=== PATIENT | male | born 1990 | race African-American/Black ===

== ENCOUNTER 2019-03-27 10:18 | Inpatient (IN) | payer OTHER ==
[~2019-03-27] VITALS: Ht 182.9 cm; Wt 124.3 kg
[2019-03-27] MEDS ORDERED: ONDANSETRON 2MG/ML, 2ML ONE (10:28)
[2019-03-27] MEDS ORDERED: ONDANSETRON 2MG/ML, 2ML IVPush ONE (10:30)
[2019-03-27] MEDS ORDERED: SODIUM CHLORIDE 0.9% 1,000ML IVBOLUS ONE (10:30)
[2019-03-27] MEDS ORDERED: SODIUM CHLORIDE FLUSH 10ML SYR IVF ONE (10:30)
--- NOTE | 2019-03-27 10:43 | NUR ---
BIBA FROM HOME. ABD PAIN, N/V/D X 2 DAYS. LAST DIAHRREA YEST. COFFEE GROUND EMESIS (PER PT) X4 TODAY. PAIN TO PALP, SEEMS WORSE IN LUQ. BS NORMAL X4. C/O NAUSEA. 12.5 PHENERGAN/100 FENT/650 CC NS PER EMS W/ LITTLE RELIEF. A&OX4 GCS 15. DROWSY R/T MEDS. LUNGS CTAB. ZACHARY 50S. BP STABLE. ABD SOFT. PULSES 2+. MILAGROS IN ROOM FOR EVAL. SHAW PER MAY. UA SENT. AWAITING LAB. CALL STACY IN REACH.
[2019-03-27 10:48] LABS: MICROSCOPIC AUTO
[2019-03-27 10:59] LABS: CULTURE INDICATED? NO
[2019-03-27 11:06] LABS: BASOPHILS % (AUTO) 0 % (0-1); EOSINOPHILS # (AUTO) 0.01 x10^3/uL (0-0.4); EOSINOPHILS % (AUTO) 0 % (1-7); LYMPHOCYTES # (AUTO) 1.21 x10^3/uL (1-3.4); LYMPHOCYTES % (AUTO) 13 % (22-44); MD NO; MEAN CORPUSCULAR HEMOGLOBIN 30.2 pg (27.5-34.5); MEAN CORPUSCULAR HGB CONC 33.7 g/dL (33.2-36.2); MEAN CORPUSCULAR VOLUME 89.7 fL (81-97); MEAN PLATELET VOLUME 7.8 fL (7.4-10.4); MONOCYTES # (AUTO) 0.28 x10^3/uL (0.2-0.8); MONOCYTES % (AUTO) 3 % (2-9); NEUTROPHILS # (AUTO) 7.68 x10^3/uL (1.8-6.8); NEUTROPHILS % (AUTO) 84 % (42-75); PLATELET COUNT 219 x10^3/uL (130-400); RED CELL DISTRIBUTION WIDTH 13.2 % (9.4-14.8)
[2019-03-27 11:16] LABS: ALANINE AMINOTRANSFERASE 69 U/L (12-78); ALBUMIN 3.4 g/dL (3.4-5.0); ANION GAP 7 mmol/L (5-15); CALCIUM 8.2 mg/dL (8.5-10.1); CHLORIDE 108 mmol/L (98-107); CREATININE 1.08 mg/dL (0.7-1.3)
[2019-03-27 11:18] LABS: ALKALINE PHOSPHATASE 109 U/L (45-117); BILIRUBIN,TOTAL 0.6 mg/dL (0.2-1.0); TOTAL PROTEIN 6.6 g/dL (6.4-8.2)
[2019-03-27] MEDS ORDERED: OMNIPAQUE 350 MG/ML, 150 ML BOTTLE ONE (11:54)
--- NOTE | 2019-03-27 12:15 | NUR ---
recheck. pt given urinal. sts pain/nausea unchanged. gf at bedside. vss. call montoya in reach. as
--- NOTE | 2019-03-27 12:32 | NUR ---
REVIEW OF CHART, ASSUME CARE OF PT AT THIS TIME. 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 PT AMBULATED WITH STEADY GAIT TO BR.
--- NOTE | 2019-03-27 12:42 | NUR ---
report to jovana ortega. as
--- NOTE | 2019-03-27 13:09 | NUR ---
ON RETURN FROM BR, PT WITH APPROX 200 CC EMESIS AND C/O PERSISTENT ABD PAIN-REQUESTING MORE MEDICATION. NOTE TO ERP, AWAITING FURTHER ORDERS.
[2019-03-27] MEDS ORDERED: PROCHLORPERAZINE 5 MG/ML, 2ML ONE ×2 (13:15)
[2019-03-27] MEDS ORDERED: MORPHINE SULFATE 4 MG/ML, 1ML ONE (13:15)
--- NOTE | 2019-03-27 13:22 | NUR ---
MEDS GIVEN PER ERP ORDER. PULSE OX IN PLACE. RECHECK WITH PO CHALLENGE IN 20 MINUTES.
[2019-03-27] MEDS ORDERED: PROCHLORPERAZINE 5 MG/ML, 2ML IVPush ONE (13:30)
[2019-03-27] MEDS ORDERED: MORPHINE SULFATE 4 MG/ML, 1ML IVPush PRN (13:30)
--- NOTE | 2019-03-27 14:03 | NUR ---
PT SLEEPING, NAD. VSS. PT TO BE ADMITTED, AWAITING ADMIT BED.
--- NOTE | 2019-03-27 14:26 | NUR ---
REPORT TO [facility] READY FOR TRANSPORT.
[2019-03-27] MEDS ORDERED: PROMETHAZINE 25 MG/ML, 1ML IM PRN (15:30)
[2019-03-27] MEDS ORDERED: ONDANSETRON 2MG/ML, 2ML IVPush PRN (15:30)
[2019-03-27] MEDS ORDERED: morphine SULFATE 10 MG/ML, 1ML IVPush PRN (15:30)
[2019-03-27] MEDS ORDERED: ONDANSETRON ODT 4 MG PO PRN (15:30)
[2019-03-27] MEDS: SODIUM CHLORIDE 0.9% 1,000 ML IV SCH (17:02)
[2019-03-27 18:42] VITALS: BP 144/81
[2019-03-27] MEDS: FAMOTIDINE 20 MG/2 ML IVPush SCH (20:28)
[2019-03-27 20:50] VITALS: BP 144/81
[2019-03-28] MEDS: SODIUM CHLORIDE 0.9% 1,000 ML IV SCH ×2 (00:54→08:24)
[2019-03-28 01:06] VITALS: BP 128/76
[2019-03-28 05:25] LABS: AMPHETAMINE SCREEN, URINE Negative (Negative); BARBITURATE SCREEN, URINE Negative (Negative); BENZODIAZEPINE SCREEN, URINE Negative (Negative); CANNABINOID SCREEN, URINE Positive (Negative); COCAINE SCREEN, URINE Negative (Negative); METHADONE SCREEN, URINE Negative (Negative); OPIATE SCREEN, URINE Positive (Negative)
[2019-03-28 06:16] LABS: BASOPHILS # (AUTO) 0.03 x10^3/uL (0-0.1); BASOPHILS % (AUTO) 0 % (0-1); EOSINOPHILS # (AUTO) 0.09 x10^3/uL (0-0.4); EOSINOPHILS % (AUTO) 1 % (1-7); LYMPHOCYTES # (AUTO) 3.39 x10^3/uL (1-3.4); LYMPHOCYTES % (AUTO) 35 % (22-44); MD NO; MEAN CORPUSCULAR HEMOGLOBIN 29.9 pg (27.5-34.5); MEAN CORPUSCULAR HGB CONC 33.1 g/dL (33.2-36.2); MEAN CORPUSCULAR VOLUME 90.5 fL (81-97); MONOCYTES # (AUTO) 0.58 x10^3/uL (0.2-0.8); MONOCYTES % (AUTO) 6 % (2-9); NEUTROPHILS # (AUTO) 5.63 x10^3/uL (1.8-6.8); NEUTROPHILS % (AUTO) 58 % (42-75); PLATELET COUNT 197 x10^3/uL (130-400); RED BLOOD COUNT 5.09 x10^6/uL (4.38-5.82)
[2019-03-28 06:28] LABS: ALANINE AMINOTRANSFERASE 53 U/L (12-78); ALBUMIN 3.1 g/dL (3.4-5.0); ANION GAP 5 mmol/L (5-15); CALCIUM 8.4 mg/dL (8.5-10.1); CHLORIDE 110 mmol/L (98-107); CREATININE 1.13 mg/dL (0.7-1.3)
[2019-03-28 06:30] LABS: ALKALINE PHOSPHATASE 98 U/L (45-117); BILIRUBIN,TOTAL 0.8 mg/dL (0.2-1.0); TOTAL PROTEIN 6.3 g/dL (6.4-8.2)
[2019-03-28 08:00] VITALS: BP 142/84
[2019-03-28] MEDS: FAMOTIDINE 20 MG/2 ML IVPush SCH (08:24)
[2019-03-28 12:51] VITALS: BP 128/89
[2019-03-28] MEDS ORDERED: FAMO20TA7 PO (16:06)
== END 2019-03-28 17:01 | disposition home or self-care (01) | DRG 392 ==
LOC: ED 12:20 → EDIP 14:07 → 3N 16:39
PROVIDERS: ADMIT Internal Medicine; ATTEND Internal Medicine
DX: R11.2 Nausea with vomiting, unspecified (principal); F12.90 Cannabis use, unspecified, uncomplicated; K76.0 Fatty (change of) liver, not elsewhere classified; R73.9 Hyperglycemia, unspecified; T40.7X5A Adverse effect of cannabis (derivatives), initial encounter; Y92.89 Other specified places as the place of occurrence of the external cause
CPT/HCPCS: 36415; J3490; 74177; 80053; 80307; 81001; 83036; 83690; 85025; 96361; 96374; 96375; G0378; J2405; Q9967; J0780; J2270; J7030